=== PATIENT | female | born 1995 | race Caucasian/White ===

== ENCOUNTER 2022-03-10 10:48 | Day surgery (SDC) | payer OTHER ==
[2022-03-05 13:03] LABS: Hemoglobin 13.1 g/dL (12.0-15.5); Mean Corpuscular HGB CONC 33.6 g/dL (32.0-36.0); Mean Corpuscular Hemoglobin 29.2 pg (27.0-33.0); Mean Corpuscular Volume 87.1 fl (81.6-98.3); Mean Platelet Volume 10.4 fl (7.4-10.4); Platelet Count 327 10x3/uL (150-450); RBC Distribution Width 13.6 % (11.5-14.5); Red Blood Cell (RBC) Count 4.48 10x6/uL (3.90-5.03); White Blood Cell (WBC) Count 5.8 10x3/uL (3.5-10.5)
[2022-03-05 13:25] LABS: BHCG - Serum Negative (NEGATIVE); Pregs Control Background? CLEAR/WHITE (CLR/WHITE); Pregs Control Bar Appear? YES (CONTROL BAR)
[2022-03-06 10:25] VITALS: BMI 17.2
[2022-03-10] MEDS ORDERED: CeleCOXIB 100 MG CAP ONE (11:07)
[2022-03-10] MEDS ORDERED: Lidocaine 1% MPF 2 ML VIAL ONE (11:07)
[2022-03-10] MEDS ORDERED: Famotidine/PF 20 mg/2ml Vial ONE (11:08)
[2022-03-10] MEDS ORDERED: Gabapentin 300 MG CAP ONE (11:08)
[2022-03-10] MEDS ORDERED: Scopolamine 1.5 mg/72 hour Patch ONE (12:31)
[2022-03-10] MEDS ORDERED: EPINEPHrine 1 MG/ML AMP ONE (12:42)
[2022-03-10] MEDS ORDERED: Bupivacaine PF 0.5% 30 ML VIAL ONE (12:42)
[2022-03-10] MEDS ORDERED: PROPOFOL 20 ML ONE (12:53)
[2022-03-10] MEDS ORDERED: Fentanyl 100 MCG/2 ML VIAL ONE (12:53)
[2022-03-10] MEDS ORDERED: Midazolam HCl 2 mg/2 ml Vial ONE (12:54)
[2022-03-10] MEDS ORDERED: Rocuronium Bromide 10 MG/ML (10ML VIAL) ONE (12:55)
[2022-03-10] MEDS ORDERED: Lidocaine 1% PF 5 ML VIAL ONE (12:55)
[2022-03-10] MEDS ORDERED: CEFAZOLIN 2 GM VIAL ONE (13:05)
[2022-03-10] MEDS ORDERED: diphenhydrAMINE 50 MG/ML VIAL ONE (13:25)
[2022-03-10] MEDS ORDERED: Dexamethasone 4 mg/ml Vial ONE (13:36)
[2022-03-10] MEDS ORDERED: Ondansetron PF 4 MG/2 ML Vial ONE (13:36)
[2022-03-10] MEDS ORDERED: Meperidine HCl/PF 25 MG/ML VIAL ONE (14:45)
[2022-03-10] MEDS ORDERED: Ketorolac Tromethamine 30 MG/ML VIAL ONE (14:49)
[2022-03-10] MEDS ORDERED: Glycopyrrolate 0.2 MG/ML 5 ML SYRINGE ONE (15:01)
[2022-03-10] MEDS ORDERED: Acetaminophen W/ Codeine 5 ML UDCUP ONE (17:03)
== END 2022-03-10 18:10 | disposition home or self-care (01) ==
LOC: CSHSDC 10:48
PROVIDERS: ATTEND Obstetrics & Gynecology
DX: N94.6 Dysmenorrhea, unspecified (principal); N83.12 Corpus luteum cyst of left ovary; N73.6 Female pelvic peritoneal adhesions (postinfective); Z20.822 Contact with and (suspected) exposure to COVID-19
CPT/HCPCS: 36415; 84703; 85027; 86850; 86900; 86901; 87811; 88305; C1776; J0171; J0690; J1100; J1200; J1885; J2175; J2250; J2405; J2704; J3010; S0020; S0028